=== PATIENT | female | born 1955 | race African-American/Black ===

== ENCOUNTER 2022-04-28 21:53 | Inpatient (IN) ==
[2022-04-28] MEDS ORDERED: SODIUM CHLORIDE 0.9% 1,000 ML IV STA (22:25)
[2022-04-28 22:52] LABS: Basophils % 0.2 % (0.0-0.8); Hematocrit 26.1 VOL% (35.7-47.0); Hemoglobin 8.2 GM/DL (12.0-16.0); Immature Granulocytes % 0.2 %; Immature Granulocytes Absolute 0.01 #; Lymphocytes # 0.7 10*3/uL (1.4-4.0); Lymphocytes % 12.5 % (21.3-54.2); Mean Corpuscular HGB Conc 31.4 GM/DL (32-36); Mean Corpuscular Volume 81.1 FL (87-102); Mean Platelet Volume 10.2 FL (9.6-12.0); Monocytes # 0.3 10*3/uL (0.11-0.8); Monocytes % 4.6 % (1.7-12.7); Neutrophils % 82.5 % (38.7-73.9); Platelet Count 334 T/CUMM (130-400); Red Blood Count 3.22 MC/CUMM (3.8-5.5); Red Cell Distribution Width 16.1 % (9.3-17.3); White Blood Count 5.7 T/CUMM (4-12)
[2022-04-28 23:13] LABS: INR 1.2; PT Patient Result 13.2 SECS (10.1-12.1); Partial Thromboplastin Time 70.8 SECS (23.7-32.9)
[2022-04-28 23:17] LABS: Alanine Aminotransferase 9 U/L (13-56); Albumin 2.3 G/DL (3.4-5.0); Alkaline Phosphatase 120 U/L (45-117); Aspartate Amino Transferase 17 U/L (0-37); Bilirubin,Total < 0.39 MG/DL (0.20-1.00); Blood Urea Nitrogen 34 MG/DL (7-18); Calcium 8.6 MG/DL (8.5-10.1); Carbon Dioxide 25 MMOL/L (21-32); Chloride 102 MMOL/L (98-107); Glucose 83 MG/DL (74-106); Potassium 3.9 MMOL/L (3.5-5.1); Sodium 136 MMOL/L (136-145); Total Protein 8.2 G/DL (6.4-8.2)
[2022-04-28 23:28] LABS: Thyroid Stimulating Hormone 4.5 uIU/ml (0.358-3.74)
[2022-04-29] MEDS ORDERED: MAGNESIUM SULF RIDER 2 GM/50 ML PREMIX IV PRN (00:30)
[2022-04-29] MEDS ORDERED: MAGNESIUM SULF RIDER 4 GM/100 ML PREMIX IV PRN (00:30)
[2022-04-29] MEDS ORDERED: GLUCAGON 1 MG VIAL IM PRN (00:30)
[2022-04-29] MEDS ORDERED: POTASSIUM CHLORIDE RIDER 10 MEQ/100 ML PREMIX IV PRN (00:30)
[2022-04-29] MEDS ORDERED: POTASSIUM CHLORIDE 20 MEQ TABLET PO PRN (00:30)
[2022-04-29] MEDS ORDERED: ALUMINUM/MAGNES/SIMETH MAX STR 30 ML UDCUP PO PRN (00:30)
[2022-04-29] MEDS ORDERED: DEXTROSE 10% 250 ML BAG IV PRN (00:50)
[2022-04-29] MEDS: SODIUM CHLORIDE 0.9% 1,000 ML IV SCH (02:00)
[2022-04-29 05:57] LABS: Basophils % 0.2 % (0.0-0.8); Hematocrit 25.3 VOL% (35.7-47.0); Hemoglobin 8.1 GM/DL (12.0-16.0); Immature Granulocytes % 0.3 %; Immature Granulocytes Absolute 0.02 #; Lymphocytes # 2.7 10*3/uL (1.4-4.0); Lymphocytes % 41.7 % (21.3-54.2); Mean Corpuscular Volume 80.6 FL (87-102); Mean Platelet Volume 10.1 FL (9.6-12.0); Monocytes # 0.3 10*3/uL (0.11-0.8); Monocytes % 4.5 % (1.7-12.7); Neutrophils % 53.3 % (38.7-73.9); Platelet Count 313 T/CUMM (130-400); Red Blood Count 3.14 MC/CUMM (3.8-5.5); Red Cell Distribution Width 16.3 % (9.3-17.3); White Blood Count 6.4 T/CUMM (4-12)
[2022-04-29 05:57] LABS: Calcium 7.9 MG/DL (8.5-10.1); Osmolality,Calculated 281.5 MOS/KG (273-304); Potassium 3.8 MMOL/L (3.5-5.1)
[2022-04-29] MEDS: LEVOTHYROXINE 25 MCG TABLET PO SCH (06:30)
[2022-04-29] MEDS ORDERED: ATORVASTATIN 20 MG TABLET ONE (06:50)
[2022-04-29] MEDS: INSULIN REGULAR 100 UNIT/ML SUBCUT SCH ×4 (08:03→22:01)
[2022-04-29] MEDS: APIXABAN 2.5 MG TABLET PO SCH ×2 (09:13→21:55)
[2022-04-29] MEDS: PANTOPRAZOLE 40 MG TABLET PO SCH (09:13)
[2022-04-29] MEDS: amLODIPine 5 MG TABLET PO SCH (09:13)
[2022-04-29] MEDS: DOCUSATE SODIUM 100 MG CAPSULE PO SCH ×2 (09:13→21:55)
[2022-04-29 16:11] LABS: % Iron Saturation 18.7 % (18-50); Ferritin 878.5 ng/mL (8-252)
[2022-04-29] MEDS: FERROUS SULFATE 325 MG TABLET PO SCH (21:55)
[2022-04-29] MEDS: ATORVASTATIN 40 MG TABLET PO SCH (21:56)
[2022-04-30] MEDS: SODIUM CHLORIDE 0.9% 1,000 ML IV SCH ×4 (06:03→19:37)
[2022-04-30] MEDS: LEVOTHYROXINE 25 MCG TABLET PO SCH (06:03)
[2022-04-30 08:49] LABS: Hematocrit 23.4 VOL% (35.7-47.0); Hemoglobin 7.3 GM/DL (12.0-16.0); Immature Granulocytes % 0.3 %; Immature Granulocytes Absolute 0.01 #; Lymphocytes # 1.1 10*3/uL (1.4-4.0); Lymphocytes % 29.2 % (21.3-54.2); Mean Corpuscular HGB Conc 31.2 GM/DL (32-36); Mean Corpuscular Volume 81.5 FL (87-102); Mean Platelet Volume 10.1 FL (9.6-12.0); Monocytes # 0.2 10*3/uL (0.11-0.8); Monocytes % 6.4 % (1.7-12.7); Neutrophils % 64.1 % (38.7-73.9); Platelet Count 270 T/CUMM (130-400); Red Blood Count 2.87 MC/CUMM (3.8-5.5); Red Cell Distribution Width 16.2 % (9.3-17.3); White Blood Count 3.6 T/CUMM (4-12)
[2022-04-30 09:05] LABS: Calcium 8.1 MG/DL (8.5-10.1); Osmolality,Calculated 281.5 MOS/KG (273-304); Potassium 3.8 MMOL/L (3.5-5.1)
[2022-04-30] MEDS: DOCUSATE SODIUM 100 MG CAPSULE PO SCH ×2 (09:19→21:31)
[2022-04-30] MEDS: PANTOPRAZOLE 40 MG TABLET PO SCH (09:19)
[2022-04-30] MEDS: FERROUS SULFATE 325 MG TABLET PO SCH (09:19)
[2022-04-30] MEDS: amLODIPine 5 MG TABLET PO SCH (09:19)
[2022-04-30] MEDS: APIXABAN 2.5 MG TABLET PO SCH (09:20)
[2022-04-30] MEDS: ONDANSETRON 4 MG/2 ML VIAL IV PRN ×3 (09:24→22:31)
[2022-04-30] MEDS: INSULIN REGULAR 100 UNIT/ML SUBCUT SCH ×4 (09:31→21:34)
[2022-04-30] MEDS: ATORVASTATIN 40 MG TABLET PO SCH (21:31)
[2022-04-30] MEDS: AZITHROMYCIN INJ 500 MG in SODIUM CHLORIDE 0.9% 250 ML IV SCH (21:34)
[2022-04-30] MEDS: HEPARIN 5,000 UNIT/1 ML VIAL SUBCUT SCH (23:38)
[2022-04-30] MEDS: cefTRIAXone 2,000 MG in SODIUM CHLORIDE 0.9% 100 ML IV SCH (23:40)
[2022-05-01 05:13] LABS: Basophils % 0.1 % (0.0-0.8); Hematocrit 24.8 VOL% (35.7-47.0); Hemoglobin 7.8 GM/DL (12.0-16.0); Immature Granulocytes % 0.2 %; Immature Granulocytes Absolute 0.02 #; Lymphocytes % 10.6 % (21.3-54.2); Mean Corpuscular HGB Conc 31.5 GM/DL (32-36); Mean Corpuscular Volume 81.6 FL (87-102); Mean Platelet Volume 10.4 FL (9.6-12.0); Monocytes # 0.3 10*3/uL (0.11-0.8); Monocytes % 3.8 % (1.7-12.7); Neutrophils % 85.3 % (38.7-73.9); Platelet Count 310 T/CUMM (130-400); Red Blood Count 3.04 MC/CUMM (3.8-5.5); Red Cell Distribution Width 16.3 % (9.3-17.3)
[2022-05-01 05:35] LABS: Calcium 8.2 MG/DL (8.5-10.1); Osmolality,Calculated 285.4 MOS/KG (273-304); Potassium 3.8 MMOL/L (3.5-5.1)
[2022-05-01] MEDS: INSULIN REGULAR 100 UNIT/ML SUBCUT SCH ×4 (08:45→21:41)
[2022-05-01] MEDS: DOCUSATE SODIUM 100 MG CAPSULE PO SCH ×2 (08:46→21:42)
[2022-05-01] MEDS: PANTOPRAZOLE 40 MG TABLET PO SCH (08:46)
[2022-05-01] MEDS: amLODIPine 5 MG TABLET PO SCH (08:46)
[2022-05-01] MEDS ORDERED: GLUCAGON 1 MG VIAL IM PRN (10:48)
[2022-05-01] MEDS ORDERED: DEXTROSE 10% 250 ML BAG IV PRN (10:51)
[2022-05-01] MEDS: SODIUM CHLORIDE 0.9% 1,000 ML IV SCH (16:55)
[2022-05-01] MEDS: AZITHROMYCIN INJ 500 MG in SODIUM CHLORIDE 0.9% 250 ML IV SCH (21:38)
[2022-05-01] MEDS: ATORVASTATIN 40 MG TABLET PO SCH (21:41)
[2022-05-01] MEDS: HEPARIN 5,000 UNIT/1 ML VIAL SUBCUT SCH ×2 (21:44→21:46)
[2022-05-01] MEDS: cefTRIAXone 2,000 MG in SODIUM CHLORIDE 0.9% 100 ML IV SCH (22:41)
[2022-05-02 07:17] LABS: Glucose,Urine (UA) Negative (Negative); Ketones,Urine Negative (Negative); Mucus,Urine Occasional /LPF (Occasional); Nitrite,Urine Negative (Negative); Protein,Urine >=300 mg/dL (Negative); RBC,Urine 93 /HPF (0-4); Urine Appearance Clear (Clear); Urine Color Yellow (Yellow); Urine pH 5.5 (4.5-8.0)
[2022-05-02 07:18] LABS: Bilirubin,Urine Negative (Negative); Blood, Urine Large mg/dL (Negative); Urine Urobilinogen 0.2 eU/dL (<2.0)
[2022-05-02] MEDS: INSULIN REGULAR 100 UNIT/ML SUBCUT SCH ×4 (08:11→21:54)
[2022-05-02 08:35] LABS: Eosinophils % 0.3 % (0.00-10.9); Hematocrit 22.5 VOL% (35.7-47.0); Immature Granulocytes % 0.5 %; Immature Granulocytes Absolute 0.02 #; Lymphocytes # 0.9 10*3/uL (1.4-4.0); Lymphocytes % 23.8 % (21.3-54.2); Mean Corpuscular HGB Conc 31.1 GM/DL (32-36); Mean Corpuscular Volume 81.8 FL (87-102); Mean Platelet Volume 11.1 FL (9.6-12.0); Monocytes # 0.3 10*3/uL (0.11-0.8); Monocytes % 7.1 % (1.7-12.7); Neutrophils % 68.3 % (38.7-73.9); Platelet Count 270 T/CUMM (130-400); Red Blood Count 2.75 MC/CUMM (3.8-5.5)
[2022-05-02 08:53] LABS: Calcium 7.9 MG/DL (8.5-10.1); Osmolality,Calculated 281.7 MOS/KG (273-304); Potassium 3.7 MMOL/L (3.5-5.1)
[2022-05-02 09:09] LABS: Anisocytosis 1+; Band Neutrophils 6 % (0-10); Eosinophils 2 % (0-10); Lymphocytes 25 % (20-55); Nucleated Red Blood Cells 6 /100 WBC (0-5); Platelet Estimate Normal; Total Cells Counted 100
[2022-05-02] MEDS: HEPARIN 5,000 UNIT/1 ML VIAL SUBCUT SCH (09:18)
[2022-05-02] MEDS: amLODIPine 5 MG TABLET PO SCH (09:18)
[2022-05-02] MEDS: PANTOPRAZOLE 40 MG TABLET PO SCH (09:18)
[2022-05-02] MEDS: DOCUSATE SODIUM 100 MG CAPSULE PO SCH ×2 (09:18→20:52)
[2022-05-02] MEDS: CEFEPIME 1,000 MG in SODIUM CHLORIDE 0.9% 100 ML IV SCH ×2 (12:46→23:00)
[2022-05-02] MEDS ORDERED: SODIUM CHLORIDE 0.9% 1,000 ML IV PRN (14:38)
[2022-05-02] MEDS: ONDANSETRON 4 MG/2 ML VIAL IV PRN (15:03)
[2022-05-02 18:19] LABS: Hepatitis B Core IgM Quant 0.17 Index; Hepatitis B Surface Ag Quant < 0.10 Index; Hepatitis B Surface Ag Result Non-Reactive (NonReactive); Hepatitis C Virus Ab Quant 0.07 Index; Hepatitis C Virus Ab Result Non-Reactive (NonReactive)
[2022-05-02] MEDS: ATORVASTATIN 40 MG TABLET PO SCH (20:51)
[2022-05-02] MEDS: AZITHROMYCIN INJ 500 MG in SODIUM CHLORIDE 0.9% 250 ML IV SCH (20:53)
[2022-05-02] MEDS: ACETAMINOPHEN 325 MG TABLET PO PRN (20:56)
[2022-05-02] MEDS: SODIUM CHLORIDE 0.9% 1,000 ML IV SCH (23:50)
[2022-05-03 05:43] LABS: Basophils % 0.3 % (0.0-0.8); Eosinophils % 0.3 % (0.00-10.9); Hematocrit 30.6 VOL% (35.7-47.0); Hemoglobin 9.7 GM/DL (12.0-16.0); Immature Granulocytes % 1.1 %; Immature Granulocytes Absolute 0.04 #; Lymphocytes # 0.9 10*3/uL (1.4-4.0); Lymphocytes % 23.7 % (21.3-54.2); Mean Corpuscular HGB Conc 31.7 GM/DL (32-36); Mean Corpuscular Volume 82.9 FL (87-102); Mean Platelet Volume 10.3 FL (9.6-12.0); Monocytes # 0.2 10*3/uL (0.11-0.8); Monocytes % 6.2 % (1.7-12.7); Neutrophils % 68.4 % (38.7-73.9); Platelet Count 234 T/CUMM (130-400); Red Blood Count 3.69 MC/CUMM (3.8-5.5); White Blood Count 3.7 T/CUMM (4-12)
[2022-05-03 06:07] LABS: Calcium 8.3 MG/DL (8.5-10.1); Osmolality,Calculated 280.8 MOS/KG (273-304); Potassium 3.7 MMOL/L (3.5-5.1)
[2022-05-03] MEDS: INSULIN REGULAR 100 UNIT/ML SUBCUT SCH ×4 (09:56→21:39)
[2022-05-03] MEDS: LACTATED RINGERS 1,000 ML IV SCH (09:56)
[2022-05-03] MEDS: amLODIPine 5 MG TABLET PO SCH (10:57)
[2022-05-03] MEDS: PANTOPRAZOLE 40 MG TABLET PO SCH (10:57)
[2022-05-03] MEDS: DOCUSATE SODIUM 100 MG CAPSULE PO SCH ×2 (10:57→21:38)
[2022-05-03] MEDS: CEFEPIME 1,000 MG in SODIUM CHLORIDE 0.9% 100 ML IV SCH ×2 (11:43→23:52)
[2022-05-03] MEDS ORDERED: MAGNESIUM SULF RIDER 4 GM/100 ML PREMIX IV ONE (14:04)
[2022-05-03] MEDS: SODIUM CHLORIDE 0.9% 1,000 ML IV SCH (15:53)
[2022-05-03] MEDS: ATORVASTATIN 40 MG TABLET PO SCH (21:38)
[2022-05-03] MEDS: AZITHROMYCIN INJ 500 MG in SODIUM CHLORIDE 0.9% 250 ML IV SCH (21:39)
[2022-05-04 06:03] LABS: Calcium 8.3 MG/DL (8.5-10.1); Osmolality,Calculated 280.7 MOS/KG (273-304); Potassium 3.7 MMOL/L (3.5-5.1)
[2022-05-04 06:52] LABS: Total Protein (Chem) 7.3 G/DL (6.4-8.3)
[2022-05-04 08:05] LABS: Albumin (SPE) 2.5 G/DL (3.2-5.3); Albumin (SPE) Rel % 34.4 %; Alpha 1 (SPE) 0.2 G/DL (0.1-0.4); Alpha 1 (SPE) Rel % 3.1 %; Alpha 2 (SPE) 1.1 G/DL (0.4-1.0); Alpha 2 (SPE) Rel % 15.4 %; Beta (SPE) 0.5 G/DL (0.5-1.1); Beta (SPE) Rel % 7.5 %; Gamma (SPE) 2.9 G/DL (0.7-1.7); Gamma (SPE) Rel % 39.6 %
[2022-05-04] MEDS: INSULIN REGULAR 100 UNIT/ML SUBCUT SCH ×4 (08:52→20:58)
[2022-05-04] MEDS: DOCUSATE SODIUM 100 MG CAPSULE PO SCH ×2 (09:39→20:57)
[2022-05-04] MEDS: amLODIPine 5 MG TABLET PO SCH (09:39)
[2022-05-04] MEDS: PANTOPRAZOLE 40 MG TABLET PO SCH (09:39)
[2022-05-04] MEDS: ACETAMINOPHEN 325 MG TABLET PO PRN ×2 (09:39→21:00)
[2022-05-04] MEDS: CEFEPIME 1,000 MG in SODIUM CHLORIDE 0.9% 100 ML IV SCH ×2 (13:00→23:21)
[2022-05-04] MEDS: LACTATED RINGERS 1,000 ML IV SCH (13:03)
[2022-05-04] MEDS: SODIUM CHLORIDE 0.9% 1,000 ML IV SCH (17:49)
[2022-05-04] MEDS: ATORVASTATIN 40 MG TABLET PO SCH (20:56)
[2022-05-04] MEDS: HEPARIN 5,000 UNIT/1 ML VIAL SUBCUT SCH (20:57)
[2022-05-04] MEDS: AZITHROMYCIN INJ 500 MG in SODIUM CHLORIDE 0.9% 250 ML IV SCH (20:57)
[2022-05-05 05:05] LABS: Basophils % 0.2 % (0.0-0.8); Hematocrit 32.1 VOL% (35.7-47.0); Hemoglobin 10.4 GM/DL (12.0-16.0); Immature Granulocytes % 0.2 %; Immature Granulocytes Absolute 0.01 #; Lymphocytes # 1.4 10*3/uL (1.4-4.0); Lymphocytes % 26.5 % (21.3-54.2); Mean Corpuscular HGB Conc 32.4 GM/DL (32-36); Mean Corpuscular Volume 82.3 FL (87-102); Mean Platelet Volume 10.2 FL (9.6-12.0); Monocytes # 0.3 10*3/uL (0.11-0.8); Monocytes % 6.1 % (1.7-12.7); Platelet Count 247 T/CUMM (130-400); Red Cell Distribution Width 16.9 % (9.3-17.3); White Blood Count 5.1 T/CUMM (4-12)
[2022-05-05 05:24] LABS: Calcium 8.3 MG/DL (8.5-10.1); Osmolality,Calculated 272.2 MOS/KG (273-304); Potassium 3.9 MMOL/L (3.5-5.1)
[2022-05-05] MEDS: INSULIN REGULAR 100 UNIT/ML SUBCUT SCH ×4 (07:40→21:00)
[2022-05-05] MEDS: PANTOPRAZOLE 40 MG TABLET PO SCH (08:07)
[2022-05-05] MEDS: amLODIPine 5 MG TABLET PO SCH (08:07)
[2022-05-05] MEDS: HEPARIN 5,000 UNIT/1 ML VIAL SUBCUT SCH ×2 (08:07→21:00)
[2022-05-05] MEDS: ONDANSETRON 4 MG/2 ML VIAL IV PRN (08:08)
[2022-05-05] MEDS: DOCUSATE SODIUM 100 MG CAPSULE PO SCH ×2 (08:09→20:59)
[2022-05-05] MEDS: LACTATED RINGERS 1,000 ML IV SCH (08:13)
[2022-05-05] MEDS: CEFEPIME 1,000 MG in SODIUM CHLORIDE 0.9% 100 ML IV SCH ×2 (11:06→23:12)
[2022-05-05 13:57] LABS: Myeloperoxidase Antibody 7.9 U
[2022-05-05] MEDS: ACETAMINOPHEN 325 MG TABLET PO PRN (14:48)
[2022-05-05] MEDS: SODIUM CHLORIDE 0.9% 1,000 ML IV SCH (17:13)
[2022-05-05] MEDS: AZITHROMYCIN INJ 500 MG in SODIUM CHLORIDE 0.9% 250 ML IV SCH (20:58)
[2022-05-05] MEDS: ATORVASTATIN 40 MG TABLET PO SCH (21:00)
[2022-05-06 06:37] LABS: Hematocrit 30.5 VOL% (35.7-47.0); Hemoglobin 9.8 GM/DL (12.0-16.0); Immature Granulocytes % 0.4 %; Immature Granulocytes Absolute 0.03 #; Lymphocytes # 0.9 10*3/uL (1.4-4.0); Lymphocytes % 11.8 % (21.3-54.2); Mean Corpuscular HGB Conc 32.1 GM/DL (32-36); Mean Corpuscular Volume 81.1 FL (87-102); Mean Platelet Volume 10.3 FL (9.6-12.0); Monocytes # 0.5 10*3/uL (0.11-0.8); Monocytes % 6.5 % (1.7-12.7); Neutrophils % 81.3 % (38.7-73.9); Platelet Count 240 T/CUMM (130-400); Red Blood Count 3.76 MC/CUMM (3.8-5.5); Red Cell Distribution Width 16.9 % (9.3-17.3); White Blood Count 7.5 T/CUMM (4-12)
[2022-05-06 06:57] LABS: Calcium 8.2 MG/DL (8.5-10.1); Potassium 3.7 MMOL/L (3.5-5.1)
[2022-05-06] MEDS: DOCUSATE SODIUM 100 MG CAPSULE PO SCH ×2 (09:27→21:36)
[2022-05-06] MEDS: amLODIPine 5 MG TABLET PO SCH (09:27)
[2022-05-06] MEDS: HEPARIN 5,000 UNIT/1 ML VIAL SUBCUT SCH (09:27)
[2022-05-06] MEDS: PANTOPRAZOLE 40 MG TABLET PO SCH (09:27)
[2022-05-06] MEDS: LACTATED RINGERS 1,000 ML IV SCH (10:27)
[2022-05-06] MEDS: INSULIN REGULAR 100 UNIT/ML SUBCUT SCH ×4 (10:27→21:36)
[2022-05-06] MEDS: ACETAMINOPHEN 325 MG TABLET PO PRN (11:37)
[2022-05-06] MEDS: CEFEPIME 1,000 MG in SODIUM CHLORIDE 0.9% 100 ML IV SCH ×2 (11:37→23:03)
[2022-05-06] MEDS: ALBUTEROL/IPRATROPIUM 3 ML NEB RESP TX SCH ×2 (12:32→19:17)
[2022-05-06] MEDS: SODIUM CHLORIDE 0.9% 1,000 ML IV SCH (19:15)
[2022-05-06] MEDS: AZITHROMYCIN INJ 500 MG in SODIUM CHLORIDE 0.9% 250 ML IV SCH (21:35)
[2022-05-06] MEDS: ATORVASTATIN 40 MG TABLET PO SCH (21:36)
[2022-05-07] MEDS: ALBUTEROL/IPRATROPIUM 3 ML NEB RESP TX SCH ×2 (00:22→07:06)
[2022-05-07 06:14] LABS: Calcium 8.2 MG/DL (8.5-10.1); Potassium 3.8 MMOL/L (3.5-5.1)
[2022-05-07 07:56] LABS: Hemoglobin 9.6 GM/DL (12.0-16.0); Immature Granulocytes % 0.5 %; Immature Granulocytes Absolute 0.04 #; Lymphocytes # 1.1 10*3/uL (1.4-4.0); Lymphocytes % 13.2 % (21.3-54.2); Mean Corpuscular HGB Conc 33.1 GM/DL (32-36); Mean Corpuscular Volume 80.3 FL (87-102); Mean Platelet Volume 10.4 FL (9.6-12.0); Monocytes # 0.5 10*3/uL (0.11-0.8); Monocytes % 6.2 % (1.7-12.7); Neutrophils % 80.1 % (38.7-73.9); Platelet Count 221 T/CUMM (130-400); Red Blood Count 3.61 MC/CUMM (3.8-5.5); Red Cell Distribution Width 17.1 % (9.3-17.3); White Blood Count 8.2 T/CUMM (4-12)
[2022-05-07] MEDS: INSULIN REGULAR 100 UNIT/ML SUBCUT SCH ×2 (09:05→12:57)
[2022-05-07] MEDS: LACTATED RINGERS 1,000 ML IV SCH (09:05)
[2022-05-07] MEDS: PANTOPRAZOLE 40 MG TABLET PO SCH (09:08)
[2022-05-07] MEDS: DOCUSATE SODIUM 100 MG CAPSULE PO SCH (09:08)
[2022-05-07] MEDS: amLODIPine 5 MG TABLET PO SCH (09:08)
[2022-05-07 09:31] LABS: Anti-Nuclear Antibody Pattern Homogeneous
[2022-05-07 12:07] VITALS: BP 123/73
[2022-05-07] MEDS: CEFEPIME 1,000 MG in SODIUM CHLORIDE 0.9% 100 ML IV SCH (12:57)
[2022-05-08 08:54] LABS: c-ANCA Negative (Negative); p-ANCA Positive (Negative)
== END 2022-05-07 13:03 | disposition home or self-care (01) | DRG 682 ==
LOC: N.ED 21:53 → N.EDINP 04-29 00:30 → SUATTDRO 04-29 00:30 → N.TELEN 04-29 18:40
PROVIDERS: ADMIT Hospitalist; ATTEND Family Medicine